=== PATIENT | male | born 1935 | race Caucasian/White ===

== ENCOUNTER 2019-01-30 18:45 | Observation (INO) ==
[2019-01-30] MEDS ORDERED: Morphine Sulfate 2 MG/ML SYRINGE IVP PRN (21:34)
[2019-01-30] MEDS ORDERED: Naloxone 0.4 MG/ML INJ IVP PRN (21:42)
[2019-01-30] MEDS ORDERED: Ondansetron 4 MG/2 ML VIAL IVP PRN (21:42)
--- NOTE | 2019-01-30 21:49 | Internal Med History&Physical ---
Date of Encounter: 01/30/19 Time of Encounter: 21:45 Internal Medicine - H&P: HPI Chief complaint: Chest pain History of present illness: Mr. Heredia is a 83 year old male with a past medical history of hypertension and significant smoking history who initially presented to [facility] earlier this afternoon due to reported chest pain. Patient states that around 2 PM this afternoon while seated outside on the porch he began having chest pain described as substernal tightness that was nonradiating. Patient did note shortness of breath. Denied dizziness, lightheadedness, nausea or vomiting. Symptoms persisted appeared to improve with sublingual nitroglycerin administrated in Route. Patient has no prior cardiac history. Patient denies any previous stress testing. He states he currently smokes 1-2 packs a day and has been doing so since he was a young man. Denies alcohol use. Reports no family history of heart disease. On arrival here, patient was afebrile and hemodynamically stable. Continues to complain of 3 out of 10 chest pain at this time. Laboratory workup performed at [facility] appears to be unremarkable including a negative troponin. EKG was reviewed which showed sinus rhythm with no ST or T-wave changes concerning for ischemia. Admitted for further chest pain workup. Past Med Surg Social Fam HX - Past Medical History Medical history: arthritis, GERD, hypertension, TIA Additional medical history: BPH Psychiatric history: no psych history - Past Surgical History Surgical History: appendectomy, other Additional surgical history: ankle fracture. tooth extraction. prostate sx - Social History Smoking Status: Unknown if ever smoked Smokeless Tobacco Status: No Alcohol use: none Drug use: none - Family History Son Hx Family Endocrine Disorder: Yes Internal Medicine - H&P: Meds Ranitidine HCl [Zantac] 300 mg PO DAILY 03/19/15 [History] Donepezil [Aricept] 10 mg PO HS 01/31/19 [History] Furosemide [Lasix] 40 mg PO DAILY 01/31/19 [History] Lisinopril/Hydrochlorothiazide [Lisinopril-Hctz 20-25 mg Tab] 0.5 tab PO DAILY 01/31/19 [History] Metoprolol [Lopressor] 12.5 mg PO BID 01/31/19 [History] Naproxen 500 mg PO BID 01/31/19 [History] Potassium Chloride [Klor-Con 10] 10 meq PO DAILY 01/31/19 [History] Tamsulosin HCl 0.4 mg PO DAILY 01/31/19 [History] Allergy/AdvReac Type Severity Reaction Status Date / Time No Known Allergies Allergy Verified 02/19/15 18:01 All Systems PM: A 10-system review of systems was performed and is negative for pertinent findings except as documented above in the HPI. - Constitutional Constitutional: no chills, no fever(s), no night sweats - EENT Eyes: no change in vision, no discharge, no pain, no photophobia Ears: no ear discharge, no ear pain, no tinnitus Nose, mouth and throat: no dysphagia, no nasal discharge, no neck pain, no sore throat - Cardiovascular Cardiovascular ROS IM: no chest pain, no diaphoresis, no dyspnea, no lightheadedness, no palpitations, no syncope - Respiratory Respiratory: no cough, no dyspnea, no wheezing, no excessive phlegm production - Gastrointestinal Gastrointestinal: no abdominal pain, no diarrhea, no hematemesis, no hematochezia, no melena, no nausea, no vomiting - Musculoskeletal Musculoskeletal ROS IM: no numbness, no tingling - Integumentary Integumentary IM: no rash, no unusual bruising - Neurological Neurological ROS: no confusion, no convulsions, no focal weakness, no numbness, no tingling, no tremor(s) - Hematologic/Lymphatic Hematologic/Lymphatic: no easy bruising - Constitutional Vitals: Temp Pulse Resp BP Pulse Ox 97.4 F L 70 14 115/87 96 01/30/19 20:56 01/30/19 20:56 01/30/19 20:56 01/30/19 20:56 01/30/19 20:56 Exam: General: Alert and oriented Skin:Normal color, no rash, no lesions. HEENT:EOM, pupils equal, round and reactive. Cardiovascular:Normal S1 & S2, no rubs, murmurs or gallops. No JVD. Pulse regular. Lungs:Normal breath sounds, no wheezes or crackles. Abdomen:Soft, non-tender, no rigidity. Extremities:No deformity, no edema or tenderness, no joint swelling or clubbing. Neurological:Normal cognition and motor skills. Pulses:Carotid and radial pulses normal +2. Rest of the physical exam is non contributory Internal Med - H&P Results - Labs CBC & Chem 7: 01/30/19 22:13 01/30/19 22:13 - Assessment and Plan (1) Chest pain Current Visit: Yes Status: Acute Assessment and plan: Patient is a 83-year-old male with a significant smoking history and hypertension who presented with substernal chest tightness occurring at rest and relieved with nitroglycerin. Initial troponin and EKG were unremarkable. Currently chest pain as a 2 out of 10. Patient given a loading dose of aspirin prior to transfer. -Telemetry -Trend troponin -Sublingual nitroglycerin as needed if blood pressure tolerates; will add PRN morphine -We will start patient on low-dose beta angel luis if not already on. Statin. -Echocardiogram -NPO after midnight -Stress testing if troponins remain negative -Consider Cardiology consult Qualifiers: Chest pain type: unspecified Qualified Code(s): R07.9 - Chest pain, unspecified (2) Smoking history Current Visit: Yes Status: Acute Assessment and plan: Patient reports he has been smoking since a young age and currently smokes 1-2 packs a day. Reports no prior diagnosis of COPD though the possibility of underlying undiagnosed COPD very likely. Breath sounds diminished bilaterally.. -Counseled on smoking cessation -We will obtain x-ray -Duo nebs as needed (3) Hypertension Current Visit: No Status: Chronic Assessment and plan: History of hypertension. Blood pressure currently stable. -Resume home antihypertensives in the morning Qualifiers: Hypertension type: essential hypertension Qualified Code(s): I10 - Essential (primary) hypertension (4) DVT prophylaxis Current Visit: Yes Status: Acute Assessment and plan: Subcutaneous heparin - Time Spent With Patient Total time spent is greater than 50% in coordination of care (as documented) at patient's floor/unit and/or counseling patient:
[2019-01-30] MEDS: Nitroglycerin 0.4 MG TAB.SUBL SL PRN (22:11)
[2019-01-30 22:24] LABS: Basophils # 0.1 K/mcL (0.0-0.2); Basophils % 0.5 %; Eosinophils # 0.3 K/mcL (0.0-0.6); Eosinophils % 2.6 %; Hematocrit 45.1 % (37.5-50.1); Hemoglobin 14.9 g/dL (12.9-16.9); Immature Granulocytes % 0.6 % (0-4); Lymphocytes # 1.3 K/mcL (0.6-4.6); Lymphocytes % 13.2 %; Mean Corpuscular Hemoglobin 28.7 pg (28.0-33.3); Mean Corpuscular Volume 86.7 fL (83.0-100.0); Mean Platelet Volume 8.9 fL (9.4-12.4); Monocytes # 0.7 K/mcL (0.0-1.3); Monocytes % 7.1 %; Neutrophils # 7.3 K/mcL (1.6-8.9); Platelet Count 200 K/mcL (140-400); Red Cell Distribution Width 14.9 % (11.5-14.5); White Blood Count 9.7 K/mcL (4.3-11.1)
[2019-01-30 22:36] LABS: Prothrombin Time 11.6 Seconds (9.4-12.1)
[2019-01-30 22:38] LABS: Activated Partial Thrombo Time 30.5 Seconds (26.0-36.0)
[2019-01-30 22:44] LABS: Alanine Aminotransferase 11 Units/L (7-52); Albumin 4.4 g/dL (3.5-5.7); Albumin/Globulin Ratio 1.6 (1.1-2.2); Alkaline Phosphatase 67 Units/L (34-104); Aspartate Amino Transferase 14 Units/L (13-39); BUN/Creatinine Ratio 23 (6-26); Bilirubin,Total 0.5 mg/dL (0.3-1.0); Blood Urea Nitrogen 14 mg/dL (8-23); Carbon Dioxide 32 mEq/L (23-29); Chloride 91 mEq/L (98-107); Globulin 2.8 g/dL (2.4-3.5); Glucose 110 mg/dL (70-105); Osmolality,Calculated 271 (280-300); Potassium 3.7 mEq/L (3.5-5.1); Sodium 130 mEq/L (136-145); Total Protein 7.2 g/dL (6.4-8.9); eGFR For African Americans > 60 (> 60); eGFR For Non-African Americans > 60 (> 60)
[2019-01-30] MEDS ORDERED: Ipratropium/Albuterol Neb 3 ML IH PRN (23:06)
[2019-01-31] MEDS: *HR* Heparin 5,000 UNIT/ML VIAL SQ SCH ×3 (01:19→17:28)
[2019-01-31 04:54] LABS: Bilirubin,Urine Negative (Negative); Blood,Urine Negative (Negative); Clarity,Urine Cloudy (Clear); Color,Urine Yellow (Yellow); Glucose,Urine (UA) Normal (Normal); Ketones,Urine Negative (Negative); Leukocyte Esterase,Urine Negative (Negative); Nitrite,Urine Negative (Negative); PH,Urine 6.5 pH Units (5.0-8.0); Protein,Urine Negative (Neg-Trace); Specific Gravity,Urine 1.021 (1.010-1.025); Urobilinogen,Urine Normal (Normal)
[2019-01-31 04:57] LABS: Bacteria,Urine None Seen per hpf (None-Few); Hyaline Casts,Urine None Seen per lpf (None-Few); RBC,Urine 0-3 per hpf (0-3); Squamous Epithelial Cell,Urine Few per lpf (None-Few); WBC,Urine 0-3 per hpf (0-3)
[2019-01-31 05:23] LABS: Sperm,Urine Present
[2019-01-31] MEDS ORDERED: Furosemide 20 MG TABLET PO SCH (09:00)
[2019-01-31] MEDS: Famotidine 20 MG TABLET PO SCH (09:22)
--- NOTE | 2019-01-31 09:56 | Internal Med Progress Note ---
Hospitalist Progress Note - Encounter Date of Encounter: 01/31/19 Time of Encounter: 08:30 - Subjective Interval History: H&P reviewed. 83-year-old male with history of hypertension, tobacco abuse, ?TIA, was admitted overnight due to sudden onset of chest pain that was relieved with nitroglycerin. Serial troponins have been negative 3. Denies any re currence of chest pain overnight, palpitation, nausea/vomiting, lightheadedness, or shortness of breath. No fever/chills, cough, or sputum production. - Exam Vitals: Temp Pulse Resp BP Pulse Ox 98.8 F 70 16 122/85 93 01/31/19 06:51 01/31/19 06:51 01/31/19 06:51 01/31/19 06:51 01/31/19 09:20 Exam: General: Alert and oriented, not in acute distress. Cardiovascular:Normal S1 & S2, No JVD. Pulse regular. No chest wall tenderness Lungs: clear to auscultation, no wheezes/rales Abdomen:Soft, non-tender, no rigidity. Extremities:No deformity or swelling Neurological:Normal cognition and motor skills. Non-focal - Assessment and Plan (1) Chest pain Current Visit: Yes Status: Acute Assessment and Plan: Atypical chest pain in a pt with significant cardiac risk factors serial troponins -ve, EKG without ST elevations although CXR is reported as ?pneumonitis, no signs and symptoms of bacterial PNA hold off on abx telemetry, echocardiogram Check A1c and lipid panel tomorrow stress test in AM (2) Hypertension Current Visit: No Status: Chronic Assessment and Plan: Continue home meds (3) DVT prophylaxis Current Visit: Yes Status: Acute (4) Smoking history Current Visit: Yes Status: Acute Assessment and Plan: History of 75 pack year of smoking counselled on smoking cessation but declined nicotine replacement therapy DVT Prophylaxis: Subcutaneous heparin - Time Spent with Patient Total time spent is greater than 50% in coordination of care (as documented) at patient's floor/unit and/or counseling patient: 25 - 35 minutes Plan of Care Discussed with: patient (Discussed with patient's significant other) Internal Medicine: Result - Labs CBC & Chem 7: 01/30/19 22:13 01/30/19 22:13 Labs: Short CBC 01/30/19 Range/Units 22:13 WBC 9.7 (4.3-11.1) K/mcL Hgb 14.9 (12.9-16.9) g/dL Hct 45.1 (37.5-50.1) % Plt Count 200 (140-400) K/mcL Neutrophils # 7.3 (1.6-8.9) K/mcL BMP 01/30/19 22:13 Sodium 130 L Potassium 3.7 Chloride 91 L Carbon Dioxide 32 H BUN 14 Creatinine 0.61 L Glucose 110 H Calcium 10.0 Cardiac Enzymes 01/30/19 01/31/19 Range/Units 22:13 03:51 Troponin I < 0.03 < 0.03 (< 0.04) ng/mL Liver Function 01/30/19 Range/Units 22:13 Total Bilirubin 0.5 (0.3-1.0) mg/dL AST 14 (13-39) Units/L ALT 11 (7-52) Units/L Alkaline Phosphatase 67 (34-104) Units/L Albumin 4.4 (3.5-5.7) g/dL Urine 01/31/19 Range/Units 04:30 Urine Color Yellow (Yellow) Urine Clarity Cloudy A (Clear) Urine pH 6.5 (5.0-8.0) pH Units Ur Specific [place] 1.021 (1.010-1.025) Urine Protein Negative (Neg-Trace) mg/dL Urine Glucose (UA) Normal (Normal) mg/dL - ABG Interpretation ABG results: PT/INR, D-dimer PT 11.6 Seconds (9.4-12.1) 01/30/19 22:13 - Impressions Impressions Chest X-Ray 01/30/19 23:02 IMPRESSION: Focal infiltrate or subsegmental atelectasis across the bilateral lung bases. Pneumonitis is a consideration. Senescent pulmonary changes. Calcific atherosclerotic disease aorta. D/ / Ahmet Almonte / Ahmet Almonte Interpreting Provider: Ahmet Almonte Consult Discharge Plan - Plan Referrals: Tom Sandoval, [Primary Care Provider] - (2) Hypertension Qualifiers: Hypertension type: essential hypertension Qualified Code(s): I10 - Essential (primary) hypertension
[2019-02-01 01:40] LABS: Hematocrit 39.4 % (37.5-50.1); Mean Corpuscular HGB Conc 32.5 g/dL (31.6-35.5); Mean Corpuscular Hemoglobin 28.2 pg (28.0-33.3); Mean Corpuscular Volume 86.8 fL (83.0-100.0); Mean Platelet Volume 9.1 fL (9.4-12.4); Platelet Count 184 K/mcL (140-400); Red Blood Count 4.54 M/mcL (4.19-5.50); Red Cell Distribution Width 14.7 % (11.5-14.5); White Blood Count 8.1 K/mcL (4.3-11.1)
[2019-02-01 01:44] LABS: Hemoglobin 12.8 g/dL (12.9-16.9)
[2019-02-01 02:01] LABS: BUN/Creatinine Ratio 28 (6-26); Blood Urea Nitrogen 17 mg/dL (8-23); Calcium 8.9 mg/dL (8.6-10.3); Carbon Dioxide 21 mEq/L (23-29); Chloride 97 mEq/L (98-107); Chol/HDL Ratio 3.2 (0-4.9); Cholesterol 164 mg/dL (< 200); Glucose 88 mg/dL (70-105); HDL Cholesterol 52 mg/dL (40-59); LDL Cholesterol,Calculated 97 mg/dL (0-99); Osmolality,Calculated 267 (280-300); Potassium 3.9 mEq/L (3.5-5.1); Sodium 128 mEq/L (136-145); Triglycerides 77 mg/dL (< 150); eGFR For African Americans > 60 (> 60); eGFR For Non-African Americans > 60 (> 60)
[2019-02-01] MEDS: *HR* Heparin 5,000 UNIT/ML VIAL SQ SCH ×2 (05:05→18:18)
[2019-02-01] MEDS ORDERED: Regadenoson 0.4 MG/5 ML SYRINGE IVP ONE (06:24)
[2019-02-01] MEDS: Nitroglycerin 0.4 MG TAB.SUBL SL PRN (07:05)
[2019-02-01] MEDS ORDERED: Nitroglycerin 25 MG/250 ML INFUS..BTL IVC SCH (07:15)
[2019-02-01 07:47] LABS: Troponin I < 0.03 ng/mL (< 0.04)
[2019-02-01] MEDS: Aspirin Enteric Coated 81 MG Tablet PO SCH (07:57)
[2019-02-01] MEDS: Famotidine 20 MG TABLET PO SCH (07:57)
[2019-02-01] MEDS ORDERED: Nicotine 21 MG PATCH.TD24 TD SCH (09:57)
[2019-02-01 10:20] LABS: Estimated Average Glucose 126 mg/dl
--- NOTE | 2019-02-01 10:23 | Electrocardiograph Report ---
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
[2019-02-01] MEDS ORDERED: Isosorbide MONOnitrate (24 HR) 30 MG TAB.ER.24H PO SCH (10:24)
--- NOTE | 2019-02-01 11:43 | Cardiology Consult Note ---
<Landy Luz - Last Filed: 02/01/19 11:39> Date of Encounter: 02/01/19 Time of Encounter: 10:00 Assessment and Plan (1) Chest pain Current Visit: Yes Status: Acute Per cardiology: -Atypical chest pain, however is relieved by nitro. -No acute ischemic ECG changes noted. -Troponins negative x4 [facility]. -TTE with LVEF preserved, no wall motion abnormalities noted. -Denies previous cardiac testing. -On asa, BB, nitro drip at 3mcg/min. -Patient was pending stress test today, however, he had recurrence of chest pain and stress was canceled. -Discussed with patient and family at length regarding potential testing stress vs LHC. Patient states he would never want any invasive evaluation. Patient states he just wants to go home to . -Will add imdur for chest pain, wean nitro drip to off. -Can consider palliative care consult. -Patient requests no futher cardiac evaluation, anticipate cardiology sign off once seen and evaluated by . Qualifiers: Chest pain type: unspecified Qualified Code(s): R07.9 - Chest pain, unspecified (2) Tobacco abuse Current Visit: Yes Status: Chronic Per cardiology: -Reports smoking 1.5-2 pack per day since age 17. -Smoking cessation education reviewed with patient. Discussion w patient/family: The assessment and plan as outlined above was discussed with the patient and/or family members who expressed understanding and agreement. All questions were answered. Thank you for involving us in the care of your patient. Please call with any questions. Discussed and reviewed with . History of Present Illness Consult date: 02/01/19 Requesting physician: Don William Consult reason: chest pain Chief complaint: chest pain History of present illness: Mr. Heredia is a 83 year old male with a relevant past medical history of GERD, HTN, CVA, reports [place], however no LHC or previous stress test, tobacco abuse, who presented to [facility] with complaints of chest pain. Patient states he was sitting on the porch, when he had sudden onset of sharp, stabbing chest pain. Denies radiation. Reports associated shortness of breath. Reports chronic cough. Denies aggravating factors. EMS was called and was given nitro. Reports chest pain relieved by nitro. Patient was taken to [facility] and then subsequently transferred to [facility]. Patient also reports recurrence of chest pain this morning while laying in hospital bed. Currently on nitro drip and denies current chest pain. Past Med Surg Social Fam HX - Past Medical History Attestation: Yes The following information was validated with the patient. Source: patient, old records reviewed Medical history: arthritis, GERD, hypertension, TIA Additional medical history: BPH Psychiatric history: no psych history - Past Surgical History Surgical History: appendectomy, other Additional surgical history: family states "prostate operation" - Social History Smoking Status: Current every day smoker Packs per day: 2-3 Smokeless Tobacco Status: No Alcohol use: none Drug use: none - Family History Son Hx Family Endocrine Disorder: Yes Mother Living Status: Age at : 83 Hx Family Endocrine Disorder: Yes (DM) Hx Family Neurologic Disorders: Yes (CVA) Father Living Status: Age at : 83 Cause of : heart attack Hx Family Cardiac Disorders: Yes ([place]) Medications and Allergies Ranitidine HCl [Zantac] 300 mg PO DAILY 03/19/15 [History] Donepezil [Aricept] 10 mg PO HS 01/31/19 [History] Furosemide [Lasix] 40 mg PO DAILY 01/31/19 [History] Lisinopril/Hydrochlorothiazide [Lisinopril-Hctz 20-25 mg Tab] 0.5 tab PO DAILY 01/31/19 [History] Metoprolol [Lopressor] 12.5 mg PO BID 01/31/19 [History] Naproxen 500 mg PO BID 01/31/19 [History] Potassium Chloride [Klor-Con 10] 10 meq PO DAILY 01/31/19 [History] Tamsulosin HCl 0.4 mg PO DAILY 01/31/19 [History] Aspirin Enteric Coated [Aspirin EC] 81 mg PO DAILY #30 tablet.dr 02/01/19 [Rx] Isosorbide MONOnitrate (24 HR) [Imdur] 30 mg PO DAILY #30 tab.er.24h 02/01/19 [Rx] Nicotine Patch [Nicoderm] 21 mg TD DAILY #21 patch.td24 02/01/19 [Rx] Nitroglycerin 0.4 mg SL Q5MPRN PRN #30 tab.subl 02/01/19 [Rx] Allergy/AdvReac Type Severity Reaction Status Date / Time No Known Allergies Allergy Verified 02/19/15 18:01 All Systems Review: The remainder of the systems were reviewed and are negative - Cardiovascular Cardiovascular: as per HPI, chest pain at rest Physical Examination Vital Signs Temperature 97.4 F L 01/30/19 20:56 Pulse Rate 70 01/30/19 20:56 Respiratory Rate 14 01/30/19 20:56 Blood Pressure 115/87 01/30/19 20:56 O2 Sat by Pulse Oximetry 96 01/30/19 20:56 Temperature 97.9 F 02/01/19 06:30 Pulse Rate 62 02/01/19 06:30 Respiratory Rate 18 02/01/19 04:35 Blood Pressure 127/101 02/01/19 06:30 O2 Sat by Pulse Oximetry 97 02/01/19 04:35 General: Conversant, No Apparent Distress HEENT: Atraumatic, Normocephaly, Mucus Membranes Moist Neck: No JVD, Normal carotid pulses Cardiac: Reg Rate and Rhythm, Normal S1 and S2, No Murmur Lungs: Other (Lung sounds diminished throughout. ) Neuro: Alert and responsive, No focal deficits noted Abdomen: Soft, Non-Tender Skin: No rashes noted on visualized skin Musculoskeletal: No Chest Wall Tenderness Extremities: No Clubbing, No Cyanosis, No Edema, Normal Pulses Results 02/01/19 00:53 02/01/19 00:53 Lab Results Impressions Echocardiogram 02/01/19 07:00 Impressions: LVEF 60%. Normal LV chamber size, wall thickness and systolic function. Mild left ventricular diastolic dysfunction. Normal right ventricular structure and function. Mild aortic stenosis. Mild tricuspid regurgitation. Unable to estimate RVSP due to incomplete TR jet. Left Ventricular Wall Motion: Rest Echo Findings All wall segments showed normal motion. Findings: Study Quality * Technically sub-optimal due to poor echocardiographic windows. ECG Findings * Normal sinus rhythm. Left Ventricle * LVEF 60%. * Normal LV chamber size, wall thickness and systolic function. * Mild left ventricular diastolic dysfunction. Right Ventricle * Normal right ventricular structure and function. Left Atrium * Normal left atrial size. Right Atrium * Normal right atrial size. Interatrial Septum * Interatrial septum not well evaluated. Aortic Valve * Aortic valve not well visualized. * Moderately calcified aortic valve leaflets. * No aortic regurgitation. * Mild aortic stenosis. Mitral Valve * Normal mitral valve structure. * No mitral regurgitation. * No mitral stenosis. Tricuspid Valve * Mild tricuspid regurgitation. * Trace tricuspid regurgitation. * Normal tricuspid valve structure. * Unable to estimate RVSP due to incomplete TR jet. Pulmonic Valve * Pulmonic valve is not well visualized. Aorta * Normally sized aortic root. Pericardium * The pericardium appears normal. IVC * Normal IVC dimensions and inspiratory collapse. Pulmonary Artery * Pulmonary artery not well visualized. Active Medications Albuterol/Ipratropium (Duoneb) 3 ml IH [id number] PRN PRN Reason: Shortness Of Breath/Wheezing Stop: 08/01/19 23:07 Aspirin (Aspirin Ec) 81 mg PO DAILY [facility] Stop: 08/03/19 09:01 Last Admin: 02/01/19 07:57 Dose: 81 mg Documented by: Donepezil HCl (Aricept) 10 mg PO HS [facility] Stop: 08/02/19 21:01 Last Admin: 01/31/19 21:19 Dose: 10 mg Documented by: Famotidine (Pepcid) 40 mg PO DAILY [facility] Stop: 08/02/19 09:01 Last Admin: 02/01/19 07:57 Dose: 40 mg Documented by: Lisinopril/HCTZ (Prinzide 10-12.5) 0.5 each PO DAILY [facility] Stop: 08/03/19 09:01 Last Admin: 02/01/19 10:32 Dose: 0.5 each Documented by: Heparin Sodium (Porcine) (Heparin) 5,000 unit SQ Q12HCO [facility]; Protocol Stop: 08/02/19 18:01 Last Admin: 02/01/19 05:05 Dose: 5,000 unit Documented by: Nitroglycerin (Nitroglycerin Premix 25 Mg/250 Ml) 25 mg in 250 mls @ 3 mls/hr IVC .Q24H [facility]; Protocol Stop: 08/03/19 07:16 Last Admin: 02/01/19 07:52 Dose: 5 mcg/min, 3 mls/hr Documented by: Isosorbide Mononitrate (Imdur) 30 mg PO DAILY [facility] Stop: 08/03/19 10:25 Last Admin: 02/01/19 11:38 Dose: 30 mg Documented by: Metoprolol Tartrate (Lopressor) 12.5 mg PO BID [facility] Stop: 08/02/19 01:21 Last Admin: 02/01/19 10:33 Dose: 12.5 mg Documented by: Morphine Sulfate (Morphine) 2 mg IVP Q3H PRN PRN Reason: Severe Pain (7-10) Stop: 08/01/19 21:35 Naloxone HCl (Narcan) 0.4 mg IVP Q2MPRN PRN PRN Reason: SEE COMMENTS Stop: 08/01/19 21:43 Nicotine (Nicoderm) 21 mg TD DAILY [facility]; Protocol Stop: 08/03/19 09:58 Last Admin: 02/01/19 10:37 Dose: Not Given Documented by: Nitroglycerin (Nitroglycerin) 0.4 mg SL Q5MPRN PRN PRN Reason: Chest Pain Stop: 08/01/19 21:35 Last Admin: 02/01/19 07:05 Dose: 0.4 mg Documented by: Ondansetron HCl (Zofran) 4 mg IVP Q8H PRN PRN Reason: Nausea And Vomiting Stop: 08/01/19 21:43 Potassium Chloride (Potassium Chloride) 10 meq PO DAILY [facility] Stop: 08/03/19 09:01 Last Admin: 02/01/19 07:57 Dose: 10 meq Documented by: Tamsulosin HCl (Flomax) 0.4 mg PO DAILY [facility]; Protocol Stop: 08/03/19 09:01 Last Admin: 02/01/19 07:57 Dose: 0.4 mg Documented by: Laboratory Tests 01/30/19 01/31/19 02/01/19 22:13 03:51 00:53 Troponin I < 0.03 < 0.03 < 0.03 02/01/19 07:31 Troponin I < 0.03 - Imaging and Cardiology Chest Xray: report reviewed Echo: report reviewed - EKG Interpretation EKG results cardiology: personally reviewed (ECG with SR.), other (Telemetry reviewed with average HR previous 12 hours noted to be 62, SR. PVCs, PACs noted.) Consult Discharge Plan - Plan Referrals: Tom Sandoval DO [Primary Care Provider] - Prescriptions: Aspirin Enteric Coated [Aspirin EC] 81 mg PO DAILY #30 tablet. Isosorbide MONOnitrate (24 HR) [Imdur] 30 mg PO DAILY #30 tab.er.24h Nicotine Patch [Nicoderm] 21 mg TD DAILY #21 patch.td24 Nitroglycerin 0.4 mg SL Q5MPRN PRN #30 tab.subl PRN Reason: Chest Pain HAS-BLED Score - Score Stroke: Prior history of stroke Elderly: Age>65 years Medication usage predisposing to bleeding: Antiplatelet agents, NSAIDs, Anticoagulants Score: 3 <Diana Griffin - Last Filed: 02/01/19 15:07> Date of Encounter: 02/01/19 - Attending Attestation I have personally performed a face to face evaluation on this patient. I have reviewed and agree with the care plan. History and Exam by me shows: 83-year-old male with multiple cardiac risk factors here with atypical type chest pain negative cardiac markers and nonspecific EKG changes. Risks benefits and alternatives of invasive versus noninvasive risk stratification were discussed with the patient and family. Patient initially reluctant to proceed with a LHC however is okay to proceed with noninvasive workup to help risk stratify him and help him make a better decision regards to possible LHC. Assessment and Plan Discussion w patient/family: The assessment and plan as outlined above was discussed with the patient and/or family members who expressed understanding and agreement. All questions were answered. Thank you for involving us in the care of your patient. Please call with any questions. History of Present Illness History of present illness: Mr. Heredia is a 83 year old male All Systems Review: The remainder of the systems were reviewed and are negative Results 02/01/19 00:53 02/01/19 00:53 Lab Results 02/01/19 02/01/19 02/01/19 00:53 00:53 07:31 WBC 8.1 Hgb 12.8 L D Hct 39.4 Plt Count 184 Sodium 128 L Potassium 3.9 Chloride 97 L Carbon Dioxide 21 L BUN 17 Creatinine 0.60 L Glucose 88 Calcium 8.9 Troponin I < 0.03 < 0.03 02/01/19 13:55 WBC Hgb Hct Plt Count Sodium Potassium Chloride Carbon Dioxide BUN Creatinine Glucose Calcium Troponin I < 0.03
--- NOTE | 2019-02-01 13:09 | Internal Med Progress Note ---
Hospitalist Progress Note - Encounter Date of Encounter: 02/01/19 Time of Encounter: 09:45 - Subjective Interval History: No acute events overnight but patient developed recurring chest pain this morning. Minimal relief after 1-2 doses of nitro hence nitro gtt was started with symptomatic relief. Stress test was canceled as a result. Denies any nausea/vomiting or diaphoresis. The moment he felt better, he again adamantly requested to return home but after prolonged discussion with the patient and multiple family members, the decision was made to remain inpatient for stress test at least. - Exam Vitals: Temp Pulse Resp BP Pulse Ox 97.9 F 62 18 127/101 97 02/01/19 06:30 02/01/19 06:30 02/01/19 04:35 02/01/19 06:30 02/01/19 04:35 Exam: General: Alert and oriented x 4, agitated Cardiovascular:Normal S1 & S2, no rubs, murmurs or gallops. No JVD. Pulse regular. No chest wall tenderness Lungs:Normal breath sounds, no wheezes or crackles. Abdomen:Soft, non-tender, no rigidity. Extremities:No deformity, no edema or tenderness, no joint swelling or clubbing. Neurological:Normal cognition and motor skills. Pulses:Carotid and radial pulses normal +2. - Assessment and Plan (1) Chest pain Current Visit: Yes Status: Acute Assessment and Plan: Was originally scheduled for stress test but CP recurred this morning necessitating nitro drip -> symptomatic relief serial troponins x 4 -ve, EKG again was non-ischemic echocardiogram showed preserved EF Patient was initially adamant about both stress test and left heart catheterization but is now agreeable for stress test at least will keep him NPO and proceed with stress test tomorrow wean nitro gtt, add Imdur. Appreciate cardiology input (2) Hypertension Current Visit: No Status: Chronic Assessment and Plan: Continue home meds (3) Smoking history Current Visit: Yes Status: Chronic Assessment and Plan: History of 75 pack year of smoking counselled on smoking cessation but declined nicotine replacement therapy (4) DVT prophylaxis Current Visit: Yes Status: Acute Assessment and Plan: Subcutaneous heparin - Time Spent with Patient Total time spent is greater than 50% in coordination of care (as documented) at patient's floor/unit and/or counseling patient: Greater than 35 minutes Plan of Care Discussed with: patient (Discussed with multiple family members regarding the care of plan and the risk of AMA) Internal Medicine: Result - Labs CBC & Chem 7: 02/01/19 00:53 02/01/19 00:53 Labs: Short CBC 02/01/19 Range/Units 00:53 WBC 8.1 (4.3-11.1) K/mcL Hgb 12.8 L D (12.9-16.9) g/dL Hct 39.4 (37.5-50.1) % Plt Count 184 (140-400) K/mcL BMP 02/01/19 00:53 Sodium 128 L Potassium 3.9 Chloride 97 L Carbon Dioxide 21 L BUN 17 Creatinine 0.60 L Glucose 88 Calcium 8.9 Cardiac Enzymes 02/01/19 02/01/19 Range/Units 00:53 07:31 Troponin I < 0.03 < 0.03 (< 0.04) ng/mL - ABG Interpretation ABG results: PT/INR, D-dimer PT 11.6 Seconds (9.4-12.1) 01/30/19 22:13 - Impressions Impressions Echocardiogram 02/01/19 07:00 Impressions: LVEF 60%. Normal LV chamber size, wall thickness and systolic function. Mild left ventricular diastolic dysfunction. Normal right ventricular structure and function. Mild aortic stenosis. Mild tricuspid regurgitation. Unable to estimate RVSP due to incomplete TR jet. Left Ventricular Wall Motion: Rest Echo Findings All wall segments showed normal motion. Findings: Study Quality * Technically sub-optimal due to poor echocardiographic windows. ECG Findings * Normal sinus rhythm. Left Ventricle * LVEF 60%. * Normal LV chamber size, wall thickness and systolic function. * Mild left ventricular diastolic dysfunction. Right Ventricle * Normal right ventricular structure and function. Left Atrium * Normal left atrial size. Right Atrium * Normal right atrial size. Interatrial Septum * Interatrial septum not well evaluated. Aortic Valve * Aortic valve not well visualized. * Moderately calcified aortic valve leaflets. * No aortic regurgitation. * Mild aortic stenosis. Mitral Valve * Normal mitral valve structure. * No mitral regurgitation. * No mitral stenosis. Tricuspid Valve * Mild tricuspid regurgitation. * Trace tricuspid regurgitation. * Normal tricuspid valve structure. * Unable to estimate RVSP due to incomplete TR jet. Pulmonic Valve * Pulmonic valve is not well visualized. Aorta * Normally sized aortic root. Pericardium * The pericardium appears normal. IVC * Normal IVC dimensions and inspiratory collapse. Pulmonary Artery * Pulmonary artery not well visualized. Consult Discharge Plan - Plan Referrals: Tom Sandoval DO [Primary Care Provider] - Prescriptions: Aspirin Enteric Coated [Aspirin EC] 81 mg PO DAILY #30 tablet.dr Isosorbide MONOnitrate (24 HR) [Imdur] 30 mg PO DAILY #30 tab.er.24h Nicotine Patch [Nicoderm] 21 mg TD DAILY #21 patch.td24 Nitroglycerin 0.4 mg SL Q5MPRN PRN #30 tab.subl PRN Reason: Chest Pain ____ (1) Chest pain Qualifiers: Chest pain type: unspecified Qualified Code(s): R07.9 - Chest pain, unspecified (2) Hypertension Qualifiers: Hypertension type: essential hypertension Qualified Code(s): I10 - Essential (primary) hypertension
--- NOTE | 2019-02-01 14:09 | Electrocardiograph Report ---
[place] [id number] Test Date: 2019-02-01 Pat Name: Jadiel Heredia Department: 111 Room: [facility] Gender: M Device Test Engineer: : [id number] Requested By: Ha Minor Order Number: [id number] Reading MD: Mikayla Lr Measurements Intervals [place] Rate: 68 P: 52 WA: 147 QRS: 51 QRSD: 98 T: 37 QT: 396 QTc: 414 Interpretive Statements SINUS RHYTHM WITH OCCASIONAL VENTRICULAR PREMATURE COMPLEXES Electronically Signed On 02-01-2019 14:07:42 EDT by Mikayla Lr
[2019-02-01] MEDS: Nicotine 21 MG PATCH.TD24 TD SCH (15:45)
[2019-02-02] MEDS: *HR* Heparin 5,000 UNIT/ML VIAL SQ SCH (05:49)
[2019-02-02] MEDS ORDERED: Regadenoson 0.4 MG/5 ML SYRINGE IVP ONE (06:22)
[2019-02-02] MEDS ORDERED: Nicotine 21 MG PATCH.TD24 TD SCH (09:00)
[2019-02-02 11:07] VITALS: BP 156/96
--- NOTE | 2019-02-02 14:56 | Cardiology Progress Note ---
Date of Encounter: 02/02/19 Time of Encounter: 14:53 Assessment and Plan (1) Chest pain Current Visit: Yes Status: Acute Per cardiology: -Atypical chest pain, however is relieved by nitro. -No acute ischemic ECG changes noted. -Troponins negative x4 [facility]. -TTE with LVEF preserved, no wall motion abnormalities noted. 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 SDS 2. No high risk findings on stress test. -Denies previous cardiac testing. -On asa, BB. -Discussed stress test with patient and family, recommend outpatient follow up. -Will add imdur and statin. Recommend discharge with SL nitro, patient educated how to use. -Cardiology will sign off, will arrange outpatient follow up. Qualifiers: Chest pain type: unspecified Qualified Code(s): R07.9 - Chest pain, unspecified (2) Tobacco abuse Current Visit: Yes Status: Chronic Per cardiology: -Reports smoking 1.5-2 pack per day since age 17. -Smoking cessation education reviewed with patient. Discussion w patient/family: The assessment and plan as outlined above was discussed with the patient and/or family members who expressed understanding and agreement. All questions were ans wered. Thank you for involving us in the care of your patient. Please call with any questions. Discussed and reviewed with . Subjective Principal diagnosis: Chest pain Interval history: Patient denies chest pain. Anxious for discharge. Objective Vital Signs, Last 4 Hours Pulse Resp BP Pulse Ox 02/02/19 11:05 53 19 156/96 94 General: Conversant, No Apparent Distress HEENT: Atraumatic, Normocephaly, Mucus Membranes Moist Neck: No JVD, Normal carotid pulses Cardiac: Reg Rate and Rhythm, Normal S1 and S2, No Murmur Lungs: Normal Breath Sounds, No Wheeze, Rales, Rhonchi Neuro: Alert and responsive, No focal deficits noted Abdomen: Soft, Non-Tender Skin: No rashes noted on visualized skin Musculoskeletal: No Chest Wall Tenderness Extremities: No Clubbing, No Cyanosis, No Edema, Normal Pulses Results 02/01/19 00:53 02/01/19 00:53 Active Medications Albuterol/Ipratropium (Duoneb) 3 ml IH [id number] PRN PRN Reason: Shortness Of Breath/Wheezing Stop: 08/01/19 23:07 Aspirin (Aspirin Ec) 81 mg PO DAILY [facility] Stop: 08/03/19 09:01 Last Admin: 02/01/19 07:57 Dose: 81 mg Documented by: Donepezil HCl (Aricept) 10 mg PO HS [facility] Stop: 08/02/19 21:01 Last Admin: 02/01/19 20:18 Dose: 10 mg Documented by: Famotidine (Pepcid) 40 mg PO DAILY [facility] Stop: 08/02/19 09:01 Last Admin: 02/01/19 07:57 Dose: 40 mg Documented by: Lisinopril/HCTZ (Prinzide 10-12.5) 0.5 each PO DAILY [facility] Stop: 08/03/19 09:01 Last Admin: 02/01/19 10:32 Dose: 0.5 each Documented by: Heparin Sodium (Porcine) (Heparin) 5,000 unit SQ Q12HCO [facility]; Protocol Stop: 08/02/19 18:01 Last Admin: 02/02/19 05:49 Dose: 5,000 unit Documented by: Metoprolol Tartrate (Lopressor) 12.5 mg PO BID [facility] Stop: 08/02/19 01:21 Last Admin: 02/01/19 20:17 Dose: Not Given Documented by: Morphine Sulfate (Morphine) 2 mg IVP Q3H PRN PRN Reason: Severe Pain (7-10) Stop: 08/01/19 21:35 Naloxone HCl (Narcan) 0.4 mg IVP Q2MPRN PRN PRN Reason: SEE COMMENTS Stop: 08/01/19 21:43 Nicotine (Nicoderm) 21 mg TD DAILY [facility]; Protocol Stop: 08/03/19 15:36 Last Admin: 02/01/19 15:45 Dose: 21 mg Documented by: Nitroglycerin (Nitroglycerin) 0.4 mg SL Q5MPRN PRN PRN Reason: Chest Pain Stop: 08/01/19 21:35 Last Admin: 02/01/19 07:05 Dose: 0.4 mg Documented by: Ondansetron HCl (Zofran) 4 mg IVP Q8H PRN PRN Reason: Nausea And Vomiting Stop: 08/01/19 21:43 Potassium Chloride (Potassium Chloride) 10 meq PO DAILY [facility] Stop: 08/03/19 09:01 Last Admin: 02/01/19 07:57 Dose: 10 meq Documented by: Tamsulosin HCl (Flomax) 0.4 mg PO DAILY [facility]; Protocol Stop: 08/03/19 09:01 Last Admin: 02/01/19 07:57 Dose: 0.4 mg Documented by: - Imaging and Cardiology Chest Xray: report reviewed Stress Test: report reviewed Echo: report reviewed - EKG Interpretation EKG results cardiology: other (Telemetry reviewed with average HR previous 12 hours noted to be 60, SR. PVCs, PACs noted.) Consult Discharge Plan - Plan Instructions: Chest Pain (DC), Chronic Hypertension (DC) Referrals: Tom Sandoval DO [Primary Care Provider] - Diana Griffin [Partnered Physician] - Prescriptions: Aspirin Enteric Coated [Aspirin EC] 81 mg PO DAILY #30 tablet.dr Isosorbide MONOnitrate (24 HR) [Imdur] 30 mg PO DAILY #30 tab.er.24h Atorvastatin [Lipitor] 40 mg PO HS #30 tablet Nicotine Patch [Nicoderm] 21 mg TD DAILY #21 patch.td24 Nitroglycerin 0.4 mg SL Q5MPRN PRN #30 tab.subl PRN Reason: Chest Pain
[2019-02-02] MEDS: Aspirin Enteric Coated 81 MG Tablet PO SCH (15:15)
[2019-02-02] MEDS: Famotidine 20 MG TABLET PO SCH (15:15)
[2019-02-02] MEDS: Nicotine 21 MG PATCH.TD24 TD SCH (15:17)
--- NOTE | 2019-02-02 15:25 | Discharge Summary ---
- NOTES TO OUTPATIENT PROVIDER Notes to Outpatient Provider: Follow with cardiology as outpatient Date of Encounter: 02/02/19 Time of Encounter: 15:00 - Discharge Diagnosis (1) Chest pain Priority: Primary Status: Acute Qualifiers: Chest pain type: unspecified Qualified Code(s): R07.9 - Chest pain, unspecified (2) Hypertension Priority: Secondary Status: Chronic Qualifiers: Hypertension type: essential hypertension Qualified Code(s): I10 - Essential (primary) hypertension (3) Smoking history Priority: Secondary Status: Chronic (4) DVT prophylaxis Priority: Secondary Status: Acute Hospital course: Mr. Heredia is a 83 year old male with history of hypertension, tobacco abuse, ?TIA, who was admitted atypical chest pain. Serial troponins were negative 3 and he was planned for stress test when he again developed recurring chest pain that required nitro drip for relief. Echocardiogram however showed normal EF. 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 After discussing the results with Cardiology, since there were no high risk findings, the decision was made to treat him medically and follow up as outpatient to further discuss about ischemic workup. He was started on ASA, statin, and Imdur. Discharge discussed with: patient, family, nurse, case management, reservoir engineering consultant - Time Spent with Patient Total time spent providing and/or coordinating discharge services: 35 mins - Discharge Medications Prescriptions: New Aspirin Enteric Coated [Aspirin EC] 81 mg PO DAILY #30 tablet. Isosorbide MONOnitrate (24 HR) [Imdur] 30 mg PO DAILY #30 tab.er.24h Nicotine Patch [Nicoderm] 21 mg TD DAILY #21 patch.td24 Nitroglycerin 0.4 mg SL Q5MPRN PRN #30 tab.subl PRN Reason: Chest Pain Atorvastatin [Lipitor] 40 mg PO HS #30 tablet Continued Ranitidine HCl [Zantac] 300 mg PO DAILY Naproxen 500 mg PO BID Furosemide [Lasix] 40 mg PO DAILY Tamsulosin HCl 0.4 mg PO DAILY Potassium Chloride [Klor-Con 10] 10 meq PO DAILY Metoprolol [Lopressor] 12.5 mg PO BID Lisinopril/Hydrochlorothiazide [Lisinopril-Hctz 20-25 mg Tab] 0.5 tab PO DAILY Donepezil [Aricept] 10 mg PO HS Home Medications: Ranitidine HCl [Zantac] 300 mg PO DAILY 03/19/15 [History] Donepezil [Aricept] 10 mg PO HS 01/31/19 [History] Furosemide [Lasix] 40 mg PO DAILY 01/31/19 [History] Lisinopril/Hydrochlorothiazide [Lisinopril-Hctz 20-25 mg Tab] 0.5 tab PO DAILY 01/31/19 [History] Metoprolol [Lopressor] 12.5 mg PO BID 01/31/19 [History] Naproxen 500 mg PO BID 01/31/19 [History] Potassium Chloride [Klor-Con 10] 10 meq PO DAILY 01/31/19 [History] Tamsulosin HCl 0.4 mg PO DAILY 01/31/19 [History] Aspirin Enteric Coated [Aspirin EC] 81 mg PO DAILY #30 tablet.dr 02/01/19 [Rx] Isosorbide MONOnitrate (24 HR) [Imdur] 30 mg PO DAILY #30 tab.er.24h 02/01/19 [Rx] Nicotine Patch [Nicoderm] 21 mg TD DAILY #21 patch.td24 02/01/19 [Rx] Nitroglycerin 0.4 mg SL Q5MPRN PRN #30 tab.subl 02/01/19 [Rx] Atorvastatin [Lipitor] 40 mg PO HS #30 tablet 02/02/19 [Rx] Allergies/Adverse Reactions: Allergy/AdvReac Type Severity Reaction Status Date / Time No Known Allergies Allergy Verified 02/19/15 18:01 Date of admission: 01/30/19 20:34 Primary care physician: Tom Sandoval DO Consults: 02/01/19 08:49 Consult to Cardiology [CONS] Routine Comment: Consulting Provider: Cardiology Ariela Reason for Consult: atypical, recurring chest pain relieved with nitro gtt Call Completed: Yes - Constitutional Vitals: Temp Pulse Resp BP Pulse Ox 97.9 F 53 19 156/96 94 02/02/19 07:20 02/02/19 11:05 02/02/19 11:05 02/02/19 11:05 02/02/19 11:05 Exam: General: Alert and oriented x 4, agitated Cardiovascular:Normal S1 & S2, no rubs, murmurs or gallops. No JVD. Pulse regular. No chest wall tenderness Lungs:Normal breath sounds, no wheezes or crackles. Abdomen:Soft, non-tender, no rigidity. Extremities:No deformity, no edema or tenderness, no joint swelling or clubbing. Neurological:Normal cognition and motor skills. Pulses:Carotid and radial pulses normal +2. - Patient Status Disposition: Home, Self-Care Condition: Fair Functional capacity at discharge: independent ambulation Overall status at discharge: patient is progressing back to baseline - Discharge Instructions Instructions: Chest Pain (DC), Chronic Hypertension (DC) Follow Up With: Tom Sandoval DO [Primary Care Provider] - Diana Griffin [Partnered Physician] - - Diet and Activity Activity: resume usual activities as tolerated Diet: low salt diet
[2019-02-03] MEDS ORDERED: Isosorbide MONOnitrate (24 HR) 30 MG TAB.ER.24H PO SCH (09:00)
== END 2019-02-02 16:24 | disposition home or self-care (01) ==
LOC: 2NENU → SUATTDRO 20:34
PROVIDERS: ADMIT Internal Medicine; ATTEND Internal Medicine

== ENCOUNTER 2019-09-30 10:50 | Inpatient (IN) ==
[2019-09-30] MEDS ORDERED: Artificial Tears SOLN 15 ML BOTTLE BOTH EYES PRN (11:16)
[2019-09-30 11:58] LABS: ABG Base Excess 2 mEq/L (-2 to 3); ABG HCO3 26 mEq/L (21-27); ABG Oxygen Saturation 100 % (95-98); ABG PCO2 37 mmHg (35-45); ABG PH 7.46 pH Units (7.32-7.45); ABG PO2 161 mmHg (85-104); ABG TCO2 27 mEq/L (20-26); Blood Gas Modality ASSIST CONTROL; Blood Gas VT 500 cc
[2019-09-30 13:43] LABS: Basophils % 0.3 %; Eosinophils % 0.2 %; Hematocrit 40.9 % (37.5-50.1); Hemoglobin 12.7 g/dL (12.9-16.9); Immature Granulocytes % 0.5 % (0-4); Lymphocytes # 0.9 K/mcL (0.6-4.6); Lymphocytes % 7.8 %; Mean Corpuscular HGB Conc 31.1 g/dL (31.6-35.5); Mean Corpuscular Volume 90.3 fL (83.0-100.0); Mean Platelet Volume 10.2 fL (9.4-12.4); Monocytes # 0.9 K/mcL (0.0-1.3); Monocytes % 7.5 %; Neutrophils # 9.7 K/mcL (1.6-8.9); Platelet Count 155 K/mcL (140-400); Red Blood Count 4.53 M/mcL (4.19-5.50); Red Cell Distribution Width 14.6 % (11.5-14.5); Segmented Neutrophils % 83.7 %; White Blood Count 11.6 K/mcL (4.3-11.1)
[2019-09-30 13:55] LABS: INR 1.1; Prothrombin Time 12.4 Seconds (9.4-12.1)
[2019-09-30 14:03] LABS: Alanine Aminotransferase 13 Units/L (7-52); Albumin 3.7 g/dL (3.5-5.7); Albumin/Globulin Ratio 1.5 (1.1-2.2); Alkaline Phosphatase 70 Units/L (34-104); Aspartate Amino Transferase 16 Units/L (13-39); BUN/Creatinine Ratio 22 (6-26); Bilirubin,Total 0.7 mg/dL (0.3-1.0); Blood Urea Nitrogen 16 mg/dL (8-23); Calcium 8.8 mg/dL (8.6-10.3); Carbon Dioxide 23 mEq/L (23-29); Chloride 102 mEq/L (98-107); Globulin 2.5 g/dL (2.4-3.5); Glucose 121 mg/dL (70-105); Magnesium 1.8 mg/dL (1.6-2.6); Osmolality,Calculated 280 (280-300); Phosphorous 2.7 mg/dL (2.7-4.5); Potassium 3.6 mEq/L (3.5-5.1); Sodium 134 mEq/L (136-145); Total Protein 6.2 g/dL (6.4-8.9); eGFR For African Americans > 60 (> 60); eGFR For Non-African Americans > 60 (> 60)
[2019-09-30] MEDS ORDERED: Gadolinium Contrast Agent (WT Based) IV PRN (14:09)
[2019-09-30] MEDS ORDERED: Albuterol 2.5 MG/3 ML NEBULIZER IH PRN (15:00)
[2019-09-30 15:59] LABS: ABG Base Excess 3 mEq/L (-2 to 3); ABG HCO3 28 mEq/L (21-27); ABG Oxygen Saturation 97 % (95-98); ABG PCO2 42 mmHg (35-45); ABG PH 7.43 pH Units (7.32-7.45); ABG PO2 93 mmHg (85-104); ABG TCO2 29 mEq/L (20-26); Blood Gas Modality ASSIST CONTROL; Blood Gas VT 500 cc
[2019-09-30] MEDS: Ipratropium/Albuterol Neb 3 ML IH SCH ×2 (16:03→23:04)
[2019-09-30] MEDS: Artificial Tears SOLN 15 ML BOTTLE BOTH EYES SCH ×3 (17:36→21:12)
[2019-09-30] MEDS: *HR* Heparin 5,000 UNIT/ML VIAL SQ SCH (17:36)
[2019-09-30] MEDS: Piperacillin/Tazobactam 3.375 GM in 0.9 % Sodium Chloride Mini Bag 100 ML IVPB SCH (17:36)
[2019-09-30] MEDS: Famotidine 20 MG/2 ML VIAL IVP SCH (17:36)
[2019-09-30] MEDS: Doxycycline 100 MG in 0.9 % Sodium Chloride Mini Bag 100 ML IVPB SCH (17:37)
[2019-09-30] MEDS: Chlorhexidine Rinse 15 ML MOUTHWASH MM SCH (21:13)
[2019-10-01] MEDS: Piperacillin/Tazobactam 3.375 GM in 0.9 % Sodium Chloride Mini Bag 100 ML IVPB SCH ×3 (00:27→15:50)
[2019-10-01] MEDS: *HR* Heparin 5,000 UNIT/ML VIAL SQ SCH ×3 (00:27→17:16)
[2019-10-01] MEDS: Artificial Tears SOLN 15 ML BOTTLE BOTH EYES SCH ×6 (00:29→20:52)
[2019-10-01 02:22] LABS: Basophils % 0.2 %; Eosinophils % 0.1 %; Hematocrit 40.8 % (37.5-50.1); Hemoglobin 12.6 g/dL (12.9-16.9); Immature Granulocytes % 0.5 % (0-4); Lymphocytes # 0.7 K/mcL (0.6-4.6); Lymphocytes % 5.6 %; Mean Corpuscular HGB Conc 30.9 g/dL (31.6-35.5); Mean Corpuscular Hemoglobin 28.1 pg (28.0-33.3); Mean Corpuscular Volume 91.1 fL (83.0-100.0); Mean Platelet Volume 10.1 fL (9.4-12.4); Monocytes % 7.9 %; Platelet Count 139 K/mcL (140-400); Red Blood Count 4.48 M/mcL (4.19-5.50); Red Cell Distribution Width 14.7 % (11.5-14.5); Segmented Neutrophils % 85.7 %; White Blood Count 12.8 K/mcL (4.3-11.1)
[2019-10-01 02:45] LABS: BUN/Creatinine Ratio 20 (6-26); Blood Urea Nitrogen 13 mg/dL (8-23); Calcium 8.4 mg/dL (8.6-10.3); Carbon Dioxide 26 mEq/L (23-29); Chloride 102 mEq/L (98-107); Glucose 116 mg/dL (70-105); Osmolality,Calculated 283 (280-300); Potassium 3.5 mEq/L (3.5-5.1); Sodium 136 mEq/L (136-145); eGFR For African Americans > 60 (> 60); eGFR For Non-African Americans > 60 (> 60)
[2019-10-01] MEDS: Ipratropium/Albuterol Neb 3 ML IH SCH ×4 (03:53→23:29)
[2019-10-01 04:30] LABS: ABG Base Excess 3 mEq/L (-2 to 3); ABG HCO3 28 mEq/L (21-27); ABG Oxygen Saturation 98 % (95-98); ABG PCO2 44 mmHg (35-45); ABG PH 7.41 pH Units (7.32-7.45); ABG PO2 104 mmHg (85-104); ABG TCO2 30 mEq/L (20-26); Blood Gas Modality AF; Blood Gas VT 500 cc
[2019-10-01] MEDS: Famotidine 20 MG/2 ML VIAL IVP SCH ×2 (05:52→17:16)
[2019-10-01] MEDS: Doxycycline 100 MG in 0.9 % Sodium Chloride Mini Bag 100 ML IVPB SCH ×2 (05:52→17:15)
[2019-10-01] MEDS: Chlorhexidine Rinse 15 ML MOUTHWASH MM SCH ×2 (09:16→20:52)
[2019-10-01] MEDS: Aspirin 81 MG TAB.CHEW PO SCH (09:16)
[2019-10-01] MEDS ORDERED: Dexmedetomidine HCl 400 MCG/100 ML MLS IVC SCH (09:45)
[2019-10-01] MEDS ORDERED: Potassium Chloride Elixir 20 MEQ/15 ML UDC GTUBE ONE (17:45)
[2019-10-01 20:54] LABS: Magnesium 2.4 mg/dL (1.6-2.6); Potassium 4.1 mEq/L (3.5-5.1)
[2019-10-02] MEDS: Artificial Tears SOLN 15 ML BOTTLE BOTH EYES SCH ×3 (00:09→08:39)
[2019-10-02] MEDS: Piperacillin/Tazobactam 3.375 GM in 0.9 % Sodium Chloride Mini Bag 100 ML IVPB SCH ×4 (00:09→23:40)
[2019-10-02] MEDS: Ipratropium/Albuterol Neb 3 ML IH SCH ×4 (03:45→21:59)
[2019-10-02 04:41] LABS: Basophils % 0.1 %; Hemoglobin 12.9 g/dL (12.9-16.9); Immature Granulocytes % 0.5 % (0-4); Lymphocytes # 0.8 K/mcL (0.6-4.6); Lymphocytes % 7.3 %; Mean Corpuscular HGB Conc 31.5 g/dL (31.6-35.5); Mean Corpuscular Hemoglobin 28.5 pg (28.0-33.3); Mean Corpuscular Volume 90.7 fL (83.0-100.0); Mean Platelet Volume 10.5 fL (9.4-12.4); Monocytes # 0.9 K/mcL (0.0-1.3); Monocytes % 7.8 %; Neutrophils # 9.3 K/mcL (1.6-8.9); Platelet Count 138 K/mcL (140-400); Red Blood Count 4.52 M/mcL (4.19-5.50); Red Cell Distribution Width 14.7 % (11.5-14.5); Segmented Neutrophils % 84.3 %
[2019-10-02 04:50] LABS: ABG Base Excess 5 mEq/L (-2 to 3); ABG HCO3 30 mEq/L (21-27); ABG Oxygen Saturation 96 % (95-98); ABG PCO2 45 mmHg (35-45); ABG PH 7.43 pH Units (7.32-7.45); ABG PO2 83 mmHg (85-104); ABG TCO2 31 mEq/L (20-26); Blood Gas Modality AF; Blood Gas VT 500 cc
[2019-10-02 05:00] LABS: BUN/Creatinine Ratio 25 (6-26); Blood Urea Nitrogen 15 mg/dL (8-23); Calcium 8.7 mg/dL (8.6-10.3); Carbon Dioxide 25 mEq/L (23-29); Chloride 105 mEq/L (98-107); Glucose 110 mg/dL (70-105); Osmolality,Calculated 289 (280-300); Potassium 3.7 mEq/L (3.5-5.1); Sodium 139 mEq/L (136-145); eGFR For African Americans > 60 (> 60); eGFR For Non-African Americans > 60 (> 60)
[2019-10-02] MEDS: Doxycycline 100 MG in 0.9 % Sodium Chloride Mini Bag 100 ML IVPB SCH ×2 (05:36→17:07)
[2019-10-02] MEDS: Famotidine 20 MG/2 ML VIAL IVP SCH ×2 (05:42→17:07)
[2019-10-02] MEDS: *HR* Heparin 5,000 UNIT/ML VIAL SQ SCH ×2 (05:42→17:07)
[2019-10-02] MEDS: Chlorhexidine Rinse 15 ML MOUTHWASH MM SCH (08:38)
[2019-10-02] MEDS: Aspirin 81 MG TAB.CHEW PO SCH (08:38)
[2019-10-02] MEDS: lisinopriL 10 MG TABLET PO SCH (12:35)
[2019-10-03] MEDS: Ipratropium/Albuterol Neb 3 ML IH SCH ×4 (04:06→22:15)
[2019-10-03 05:10] LABS: Hematocrit 40.3 % (37.5-50.1); Hemoglobin 12.2 g/dL (12.9-16.9); Mean Corpuscular HGB Conc 30.3 g/dL (31.6-35.5); Mean Corpuscular Hemoglobin 27.9 pg (28.0-33.3); Mean Platelet Volume 10.5 fL (9.4-12.4); Platelet Count 148 K/mcL (140-400); Red Blood Count 4.38 M/mcL (4.19-5.50); Red Cell Distribution Width 14.7 % (11.5-14.5)
[2019-10-03 05:30] LABS: BUN/Creatinine Ratio 27 (6-26); Blood Urea Nitrogen 17 mg/dL (8-23); Calcium 8.5 mg/dL (8.6-10.3); Carbon Dioxide 26 mEq/L (23-29); Chloride 106 mEq/L (98-107); Glucose 119 mg/dL (70-105); Osmolality,Calculated 283 (280-300); Potassium 3.9 mEq/L (3.5-5.1); Sodium 135 mEq/L (136-145); eGFR For African Americans > 60 (> 60); eGFR For Non-African Americans > 60 (> 60)
[2019-10-03] MEDS: Famotidine 20 MG/2 ML VIAL IVP SCH (06:18)
[2019-10-03] MEDS: *HR* Heparin 5,000 UNIT/ML VIAL SQ SCH ×2 (06:18→17:54)
[2019-10-03] MEDS: Piperacillin/Tazobactam 3.375 GM in 0.9 % Sodium Chloride Mini Bag 100 ML IVPB SCH (08:50)
[2019-10-03] MEDS: Aspirin 81 MG TAB.CHEW PO SCH (08:51)
[2019-10-03] MEDS: lisinopriL 10 MG TABLET PO SCH (08:51)
[2019-10-03] MEDS ORDERED: predniSONE 20 MG TABLET PO SCH (11:00)
[2019-10-03] MEDS ORDERED: E-Z-PAQUE (BARIUM SULF) SUSP 1 BOTTLE PO ONE (14:26)
[2019-10-03] MEDS ORDERED: E-Z-HD (BARIUM SULF) SUSPENSION PO ONE (14:26)
[2019-10-03] MEDS ORDERED: Albuterol 2.5 MG/3 ML NEBULIZER IH PRN (15:00)
[2019-10-03 15:08] LABS: Red Blood Cell,CSF < 0.002 M/mcL
[2019-10-03 15:12] LABS: Appearance,CSF Clear (Clear)
[2019-10-03 15:36] LABS: Glucose,CSF 68 mg/dL (40-70); Total Protein,CSF 147 mg/dL (15-45)
[2019-10-03] MEDS ORDERED: Acyclovir 750 MG in D5% in Water 250 ML IVPB SCH (16:00)
[2019-10-03] MEDS: Acyclovir 750 MG in D5% in Water 250 ML IVPB SCH (16:05)
[2019-10-03] MEDS: cefTRIAXone 2,000 MG in Water for inj. (sterile) 20 ML IVP SCH (16:07)
[2019-10-03] MEDS: levETIRAcetam 500 MG/5 ML UDC PO SCH (20:38)
[2019-10-04] MEDS: Acyclovir 750 MG in D5% in Water 250 ML IVPB SCH ×3 (00:29→16:29)
[2019-10-04] MEDS: Ipratropium/Albuterol Neb 3 ML IH SCH ×3 (03:41→17:35)
[2019-10-04] MEDS: cefTRIAXone 2,000 MG in Water for inj. (sterile) 20 ML IVP SCH (03:54)
[2019-10-04] MEDS: *HR* Heparin 5,000 UNIT/ML VIAL SQ SCH ×2 (05:43→16:30)
[2019-10-04] MEDS: levETIRAcetam 500 MG/5 ML UDC PO SCH (08:33)
[2019-10-04] MEDS ORDERED: Aspirin 81 MG TAB.CHEW PO SCH (09:00)
[2019-10-04] MEDS ORDERED: lisinopriL 10 MG TABLET PO SCH (09:00)
[2019-10-04] MEDS ORDERED: predniSONE 20 MG TABLET PO SCH (09:00)
[2019-10-04] MEDS ORDERED: Valproic Acid INJ 500 MG in 0.9 % Sodium Chloride 100 ML IVPB ONE (11:00)
[2019-10-04] MEDS ORDERED: Piperacillin/Tazobactam 3.375 GM in 0.9 % Sodium Chloride Mini Bag 100 ML IVPB SCH (15:00)
[2019-10-04] MEDS ORDERED: MetroNIDAZOLE 500 MG/100 ML 500 MG/100 ML BAG IVPB SCH (16:00)
[2019-10-04] MEDS ORDERED: *HR* LORazepam 2 MG/ML VIAL IVP PRN (16:20)
[2019-10-04] MEDS ORDERED: *HR* LORazepam 2 MG/ML VIAL ONE (16:23)
[2019-10-04] MEDS ORDERED: Dexmedetomidine HCl 400 MCG/100 ML MLS IVC SCH (16:30)
[2019-10-04 17:56] VITALS: BP 131/93
[2019-10-04 18:20] LABS: ABG Base Excess 6 mEq/L (-2 to 3); ABG HCO3 32 mEq/L (21-27); ABG Oxygen Saturation 96 % (95-98); ABG PCO2 48 mmHg (35-45); ABG PH 7.43 pH Units (7.32-7.45); ABG PO2 79 mmHg (85-104); ABG TCO2 33 mEq/L (20-26); Blood Gas Modality AF; Blood Gas VT 480 cc
[2019-10-04] MEDS ORDERED: *HR* Etomidate 40 MG/20 ML VIAL IVP ONE (18:39)
[2019-10-04] MEDS ORDERED: *HR* Midazolam HCl 5 MG/5 ML VIAL IVP ONE (18:39)
[2019-10-04] MEDS ORDERED: Aminoglycoside Consult 1 EACH MC ONE (18:39)
[2019-10-04] MEDS ORDERED: Divalproex (12 HR) 500 MG TABLET PO SCH (21:00)
[2019-10-06 18:46] LABS: HSV Source CSF
== END 2019-10-04 18:40 | disposition short-term general hospital (02) | DRG 208 ==
LOC: EMEROOARM 10:50 → MERGE 12:47 → ICNU 12:47 → 3ANU 10-03 14:18 → 3NENU 10-04 12:06 → ICNU 10-04 13:19
PROVIDERS: ADMIT Family Medicine; ATTEND Family Medicine